=== PATIENT | female | born 1970 | race Caucasian/White ===

== ENCOUNTER 2017-07-17 14:11 | Emergency (ER) | payer BC ==
[~2017-07-17] VITALS: Ht 160 cm; Wt 79.4 kg
[2017-07-17 14:12] VITALS: BP_SYST 143
--- NOTE | 2017-07-17 14:12 | NUR ---
Patient triaged and placed in waiting room. VSS and patient appears in no acute distress at this time. Accompanied by SPOUSE, awaiting available bed, and MD notified of need for MSE.
--- NOTE | 2017-07-17 14:47 | NUR ---
CALLED TO ER ROOM #1 AND UNABLE TO LOCATE PT. BRAEDEN CLAIRE
--- NOTE | 2017-07-17 15:01 | NUR ---
CALLED TO ROOM #1 AND UNABLE TO LOCATE PT. CHECKED INSIDE WAITING ROOM AND OUTSIDE. EARLY [employer] C[employer] SPECIALIST HENOK AWARE
--- NOTE | 2017-07-17 15:14 | NUR ---
THIRD CALL FOR PT, PT IS NOT IN WAITING ROOM OR SURROUNDING AREAS. PT IS LEFT WITHOUT BEING SEEN
== END 2017-07-17 15:14 | disposition left against medical advice (07) ==
LOC: SED 14:11
DX: I10 Essential (primary) hypertension (principal); R51 Headache; Z53.21 Procedure and treatment not carried out due to patient leaving prior to being seen by health care provider

== ENCOUNTER 2017-07-18 03:41 | Emergency (ER) | payer BC ==
[~2017-07-18] VITALS: Ht 160 cm; Wt 80.7 kg
[2017-07-18 03:57] VITALS: BP_SYST 177
--- NOTE | 2017-07-18 04:22 | NUR ---
Patient to ER bed 8 to gown for evaluation. Side rails up. Report given to RENEE LÓPEZ.
--- NOTE | 2017-07-18 04:30 | NUR ---
pt in bed 8 with c/o H/A and high blood pressure. Dr Tere curran.
--- NOTE | 2017-07-18 04:56 | NUR ---
ER at bedside examining patient.
[2017-07-18] MEDS ORDERED: NACL 0.9% 1,000 ML IV ONE (04:58)
[2017-07-18] MEDS ORDERED: chlorproMAZINE HCL 50 MG/ 2 ML AMP IV ONE (05:00)
[2017-07-18] MEDS ORDERED: ASPIRIN 81 MG TAB.CHEW PO ONE (05:00)
[2017-07-18] MEDS ORDERED: DIPHENHYDRAMINE INJ 50 MG/ML VIAL IVP ONE (05:00)
[2017-07-18] MEDS ORDERED: ONDANSETRON HCL 4 MG/2 ML VIAL IVP ONE (05:00)
[2017-07-18 05:30] LABS: BILIRUBIN,URINE NEGATIVE (NEGATIVE); BLOOD, URINE 1+ (NEGATIVE); CLARITY/URINE CLEAR (CLEAR); COLOR,URINE YELLOW (YELLOW); GLUCOSE,URINE NEGATIVE (NEGATIVE); KETONES,URINE NEGATIVE (NEGATIVE); LEUKOCYTE ESTERASE ,URINE NEGATIVE (NEGATIVE); NITRITE, URINE NEGATIVE (NEGATIVE); PROTEIN URINE NEGATIVE (NEGATIVE); UROBILINOGEN,URINE 0.2 (0.2-1.0)
[2017-07-18 05:35] LABS: BACTERIA,URINE FEW /HPF (None Seen); RBC,URINE 0-3 /HPF (0-3); WBC,URINE 0-3 /HPF (0-3)
--- NOTE | 2017-07-18 05:38 | NUR ---
Patient transported to radiology via , accompanied by business technology teacher.
--- NOTE | 2017-07-18 05:45 | NUR ---
Returned from radiology, back to [facility].
--- NOTE | 2017-07-18 05:45 | NUR ---
# 20 gauge angiocath placed to RAC. Use of asceptic technique. Opsite placed over site. Blood return noted. Blood for lab drawn from site. Flushed with 10 cc of normal saline. No evidence of infiltration noted. Patient tolerated well.
--- NOTE | 2017-07-18 06:05 | NUR ---
c/o restlessness, states "dandy having side effects from that medicine" Dr Carranza aware.
--- NOTE | 2017-07-18 06:10 | NUR ---
ER at bedside examining patient.
--- NOTE | 2017-07-18 06:15 | NUR ---
Medication given as per orders, tolerating well.
[2017-07-18] MEDS ORDERED: BENZTROPINE MESYLATE 2 MG/ 2 ML AMP IVP ONE (06:30)
[2017-07-18 06:51] LABS: BASOPHILS % (AUTO) 0.3 % (0.0-2.0); EOSINOPHILS % (AUTO) 0.3 % (0.0-4.0); HEMATOCRIT 40.3 % (36-48); HEMOGLOBIN 13.1 g/dL (12.0-16.0); LYMPHOCYTES # (AUTO) 1.4 K/uL (1.0-5.5); LYMPHOCYTES % (AUTO) 13.7 % (20.5-51.5); MEAN CORPUSCULAR HEMOGLOBIN 29 pg (27-31); MEAN CORPUSCULAR HGB CONC 32 % (32-36); MEAN CORPUSCULAR VOLUME 89 fL (79.0-98.0); MONOCYTES # (AUTO) 0.4 K/uL (0.0-1.0); MONOCYTES % (AUTO) 3.4 % (1.7-9.3); NEUTROPHILS # (AUTO) 8.6 K/uL (1.8-7.7); NEUTROPHILS % (AUTO) 82.3 % (40.0-70.0); PLATELET COUNT (AUTO) 343 K/uL (130-430); RED BLOOD CELL COUNT(AUTO) 4.52 MIL/uL (4.2-6.2); RED CELL DISTRIBUTION WIDTH 13.3 % (9.0-15.0); WHITE BLOOD COUNT (AUTO) 10.4 K/uL (4.8-10.8)
[2017-07-18 06:57] LABS: CALCIUM 9.5 mg/dL (8.4-11.0); CREATININE 0.77 mg/dL (0.55-1.30); POTASSIUM 3.7 mmol/L (3.5-5.1)
[2017-07-18 07:02] LABS: ALBUMIN 3.8 g/dL (3.4-4.8); TOTAL BILIRUBIN 0.3 mg/dL (0.0-1.0)
[2017-07-18 07:35] VITALS: BP_SYST 117
--- NOTE | 2017-07-18 07:35 | NUR ---
Patient given written and verbal discharge instructions and verbalizes understanding. ER MD discussed with patient the results and treatment provided. Patient in stable condition. ID arm band removed. IV catheter removed intact and dressing applied, no active bleeding. Rx of Lisinopril given and educated on side effects of medication. Patient educated on pain management and to follow up with PMD. Pain Scale 0/10. Opportunity for questions provided and answered. Pt called and arragned for a ride home. Pt says she will wait in waiting room for ride to arrive.
== END 2017-07-18 07:35 | disposition home or self-care (01) ==
LOC: SED 03:41
DX: I10 Essential (primary) hypertension (principal); R51 Headache; Z88.5 Allergy status to narcotic agent
CPT/HCPCS: 36415; 70450; 71010; 80053; 81000; 81025; 84484; 85025; 93005; 96361; 96374; 96375; 99285; J0515; J1200; J3230; J7030

== ENCOUNTER 2018-11-30 23:48 | Emergency (ER) | payer BC ==
[~2018-11-30] VITALS: Ht 160 cm; Wt 81.6 kg
[2018-11-30 23:48] VITALS: BP_SYST 154
[2018-12-01] MEDS ORDERED: PROCHLORPERAZINE EDISYLATE 10 MG/2 ML VIAL IVP ONE
[2018-12-01] MEDS ORDERED: fentaNYL CITRATE/PF 100 MCG/2 ML AMP IVP ONE
[2018-12-01] MEDS ORDERED: NS 500 ML IV ONE (01:00)
[2018-12-01 01:55] VITALS: BP_SYST 110
== END 2018-12-01 01:55 | disposition home or self-care (01) ==
LOC: SED 23:48
DX: S00.03XA Contusion of scalp, initial encounter (principal); G43.909 Migraine, unspecified, not intractable, without status migrainosus; Z88.6 Allergy status to analgesic agent; X58.XXXA Exposure to other specified factors, initial encounter; Y93.89 Activity, other specified; Y92.89 Other specified places as the place of occurrence of the external cause; Y99.8 Other external cause status
CPT/HCPCS: 70450; 96374; 96375; 99284; J0780; J3010; J7040